=== PATIENT | female | born 1970 | race Caucasian/White ===

== ENCOUNTER → 2017-10-09 13:47 | Outpatient (CLI) | payer MEDICAID, SELFPAY ==
[2017-10-14 11:58] LABS: HPV Reflexed? NOT INDICATED
== END ==
PROVIDERS: Visit Provider Obstetrics & Gynecology
DX: Z12.4 Encounter for screening for malignant neoplasm of cervix (principal)
CPT/HCPCS: 88175; G0145

== ENCOUNTER → 2021-02-08 11:31 | Outpatient (CLI) | payer MEDICAID, SELFPAY ==
--- NOTE | 2021-02-08 11:39 | RAD_ITS ---
STUDY: X-RAY CHEST REASON FOR EXAM: Female, 51 years old. COUGH TECHNIQUE: Single frontal view of the chest. COMPARISON: None. FINDINGS: Nodular densities within the lateral upper right lung are nonspecific and may represent infection the appropriate clinical setting. There is no demonstrated pleural abnormality. Normal size heart. Normal mediastinum and clint. Normal visualized pulmonary arteries. Normal visualized aortic arch and descending thoracic aorta. Normal visualized thoracic spine. Normal visualized ribs, clavicles, and shoulders. There is no demonstrated abnormality of the visualized soft tissue structures of the upper abdomen. RAD/Chest PA and Lateral IMPRESSION: Nodular densities within the lateral upper right lung are nonspecific and may represent infection the appropriate clinical setting. Follow-up is recommended to document resolution. Electronically Signed: Devendra James MD at 21:27 EDT Tel , Service support ,
== END ==
PROVIDERS: PCP Family Medicine; Referring Provider Family Medicine; Visit Provider Family Medicine
DX: R05 Cough (principal)
CPT/HCPCS: 36415; 71046; 86769

== ENCOUNTER → 2021-03-27 11:05 | Outpatient (CLI) | payer MEDICAID, SELFPAY ==
--- NOTE | 2021-03-27 11:05 | RAD_ITS ---
STUDY: X-RAY CHEST REASON FOR EXAM: Female, 51 years old. Lung nodule. TECHNIQUE: PA and lateral views of the chest. COMPARISON: 02/08/2025. FINDINGS: The lungs are well-expanded and free of infiltrate or mass. There are no visualized nodules in the lateral right upper lobe. There is no demonstrated pleural abnormality. Normal size heart. Normal mediastinum and clint. Normal visualized pulmonary arteries. Normal visualized aortic arch and descending thoracic aorta. Normal visualized thoracic spine. Normal visualized ribs, clavicles, and shoulders. There is no demonstrated abnormality of the visualized soft tissue structures of the upper abdomen. RAD/Chest PA and Lateral IMPRESSION: No visualized pulmonary nodules. If there is continued concern CT is recommended. Electronically Signed: Ben Proctor DO at 17:19 EDT Tel [phone], Service support ,
[2021-03-27 12:33] LABS: Anion Gap 6 (5-15); BUN 14 mg/dL (7-18); BUN/Creat Ratio 21.1 RATIO (10-20); Calcium,Total 9.2 mg/dL (8.5-10.1); Chloride 103 mmol/L (98-107); Cholesterol 259 mg/dL (200); Creatinine, Serum 0.66 mg/dL (0.55-1.02); EST Glomerular Filtration Rate 100 mL/min (>60); Est Glom Filt Rate - Afr Amer 121 mL/min (>60); Glucose 103 mg/dL (74-106); High Density Lipoprotein 43 mg/dL; Potassium 3.6 mmol/L (3.5-5.1); Sodium Level 137 mmol/L (136-145); Triglycerides 404 mg/dL; Vitamin D,25 Hydroxy 37.5 ng/mL
== END ==
PROVIDERS: PCP Family Medicine; Referring Provider Family Medicine; Visit Provider Family Medicine
DX: R91.1 Solitary pulmonary nodule (principal); Z13.21 Encounter for screening for nutritional disorder; Z13.29 Encounter for screening for other suspected endocrine disorder; Z13.1 Encounter for screening for diabetes mellitus
CPT/HCPCS: 36415; 71046; 80048; 80061; 82306; 84443

== ENCOUNTER → 2021-12-12 | Outpatient (CLI) | payer MEDICAID, SELFPAY ==
[2021-12-13 17:23] LABS: HPV APTIMA, High Risk Negative (Negative); HPV Reflexed? YES, CHARGE PATIENT
== END | disposition home or self-care (01) ==
LOC: LABSPEC 09:59
PROVIDERS: PCP Family Medicine; Visit Provider Obstetrics & Gynecology
DX: Z12.4 Encounter for screening for malignant neoplasm of cervix (principal)
CPT/HCPCS: 87624; 88175; G0145

== ENCOUNTER → 2022-01-01 | Outpatient (CLI) | payer MEDICAID, SELFPAY ==
--- NOTE | 2022-01-01 13:57 | BI_ITS ---
MAMMOGRAPHY - BILATERAL SCREENING REASON FOR EXAM: Female, 51 years old. Routine annual screening examination. PERTINENT HISTORY: Non-contributory. TECHNIQUE: Digital bilateral breast maritza (3D mammographic acquisition) in the CC and MLO projections. 2-D mediolateral oblique (MLO) and craniocaudad (CC) views of both breasts were obtained. CAD: Full Field Digital Mammography with Computer Added Detection was performed. COMPARISON: Comparison is made with prior study dated 09/03/2016. FINDINGS: Breast Composition: The breasts are extremely dense, which lowers the sensitivity of mammography. There are no dominant masses or suspicious calcifications. No other significant abnormalities are identified. There has been no significant change since the prior study. BI/SCRN MAMM (CAD)W/MARITZA BILAT IMPRESSION: Stable bilateral screening mammogram. Yearly follow-up mammogram recommended. (A) ASSESSMENT CATEGORY: BIRADS Category 1: Negative. A letter regarding these results will be sent to the patient by the facility within 30 days. Approximately 10% of breast cancers are not detected by mammography. A normal mammogram should not delay biopsy of a clinically suspicious abnormality. [id number] Electronically Signed: Keo Alberto MD at 14:48 EDT ,
== END | disposition home or self-care (01) ==
LOC: OPBI 13:56
PROVIDERS: PCP Family Medicine; Referring Provider Obstetrics & Gynecology; Visit Provider Obstetrics & Gynecology
DX: Z12.31 Encounter for screening mammogram for malignant neoplasm of breast (principal)
CPT/HCPCS: 77063; 77067

== ENCOUNTER → 2022-01-10 | Outpatient (CLI) | payer MEDICAID, SELFPAY ==
[2022-01-10 10:41] LABS: Absolute Lymphocyte Count 0.87 X10^3/uL (0.83-4.51); Basophil# 0.02 X10^3/uL; Basophil% 0.5 % (0-1); Eosinophil# 0.03 X10^3/uL; Eosinophils% 0.7 % (0-5); Hematocrit 31.7 % (37-47); Hemoglobin 10.5 g/dL (12.0-15.0); Lymphocyte # 0.87 X10^3/ul (0.83-4.51); Lymphocyte % 20.1 % (19-41); Mean Corp Hgb Conc 33.1 g/dL (32-36); Mean Corpuscular Hgb 29.9 pg (27.0-32.0); Mean Corpuscular Volume 90.3 fL (81-99); Mean Platelet Vol. 9.7 fl (6.2-12.0); Monocyte# 0.41 X10^3/uL; Monocyte% 9.5 % (0-10); NRBC Flagged by Analyzer 0 % (0-5); Neutrophil # 2.99 X10^3/uL (2.7-7.7); Platelet Count 249 K/mm3 (150-450); RBC Distribution Width SD 42.7 fl (35.1-43.9); Red Blood Count 3.51 M/mm3 (4.2-5.4); White Blood Count 4.3 K/mm3 (4.4-11.0)
== END | disposition home or self-care (01) ==
LOC: PAVLAB 10:23
PROVIDERS: PCP Family Medicine; Referring Provider Obstetrics & Gynecology; Visit Provider Obstetrics & Gynecology
DX: N64.4 Mastodynia (principal)
CPT/HCPCS: 36415; 85025

== ENCOUNTER 2023-12-29 08:55 | Emergency (ER) | payer OTHER, SELFPAY ==
[2023-12-29 08:57] VITALS: BP 143/79; PULSE 77; RESP 18; TEMP 36.6; O2SAT 100
[2023-12-29 08:59] VITALS: BMI 26.3
--- NOTE | 2023-12-29 09:09 | VDLE_ITS ---
Reason For Study: Pain RLE RIGHT LEFT GSV is normal. CFV is compressible, spontaneous, phasic, FV is compressible, spontaneous, phasic, competent, and demonstrates normal competent and demonstrates normal augmentation. augmentation. POP V is compressible, spontaneous, phasic, competent and demonstrates normal augmentation. T/P Trunk is compressible. PTV is compressible. Loosely attached, mobile thrombus noted Rt CFV Rt PeroV is DILATED and NON COMPRESSIBLE consistent with acute DVT. Procedure This is a venous duplex using B-mode, color flow and spectral Doppler. Exam performed portable in ED. A preliminary report was called and/or faxed to Dr. Carver. VL/Venous Duplex US, Unilateral Interpretation Summary Acute deep vein thrombosis is noted in the right common femoral vein, peroneal vein. Ordering Physician: Holden Carver Referring Physician: Souleymane Limon Performed By: Jessica Lora, [place], RVT
--- NOTE | 2023-12-29 09:19 | ED.VIS.LOWEX ---
HPI History of Present Illness Chief Complaint: Lower Extremity Injury Narrative Narrative: 53-year-old female presents with right calf pain/ache that she has had for the last 3 days. She relates history that she had surgery approximately 2 weeks ago. She had a tummy tuck performed, and her plastic surgeon told her that her blood clots easily. She has been sleeping in a recliner, and approximately 3 days ago noticed a ache in her right calf. Since she had been told that her blood clots easily, she was doing research and became concerned about a DVT. She denies any chest pain or shortness of breath associated with this new calf pain. No problems with her abdominal incision. She presents to the emergency department today with concern for DVT. [facility] Medical History History of skin cancer Home Medications ?Medication ?Instructions ?Recorded ?Last Taken ?Type fluconazole 150 mg tablet 150 mg PO ONCE #1 TAB 01/31/23 Unknown Rx (Diflucan) Allergy/AdvReac Type Severity Reaction Status Date / Time No Known Allergies Allergy Verified 12/29/23 08:59 Surgical History H/O tubal ligation History of tonsillectomy and adenoidectomy Social History Smoking Status: Never smoker alcohol intake: current details: social substance use type: does not use caffeine: Yes seatbelt use: always do you feel safe at home: Yes ROS ROS ED ROS Narrative Constitutional: No fever, no chills. HEENT: No sore throat. No neck pain. No loss of vision. No rhinorrhea. Cardiovascular: No chest pain. No palpitations. No pedal edema. Respiratory: No cough, no shortness of breath. Abdominal: No abdominal pain. No nausea. No vomiting. Genitourinary: No dysuria. No hematuria. Musculoskeletal: Positive right posterior calf pain, mid calf. Feels more like an ache. No arthralgias. Neurologic: No headaches. No dizziness. No lightheadedness. Skin: No rash. No change in color. Psychiatric: No depression. No anxiety. EXAM Physical Exam Narrative Exam Narrative: Afebrile. Vital signs noted. Regular rate and rhythm. Lungs clear to auscultation bilaterally. Abdomen soft and nontender with positive bowel sounds. Inspection of the right lower extremity reveals no evidence of erythema. She has mild tenderness to palpation in the mid calf area, with palpable dorsalis pedis pulse. Flexion extension right knee intact, able to transfer from chair to cot without difficulty. Const Vital Signs: 12/29/23 08:57 Temperature 97.9 F Temperature Source Temporal Pulse Rate 77 Respiratory Rate 18 Blood Pressure 143/79 H Blood Pressure Mean 100 Pulse Ox 100 Oxygen Delivery Method Room Air MDM MDM MDM Narrative Medical decision making narrative: In the differential diagnosis would be below the calf DVT versus muscle strain/ache. I have low suspicion for DVT based on her clinical examination. She did state that they measured with a soft sided tape measure last evening and her right calf may have been a quarter of an inch or so larger. DVT ultrasound will be obtained to rule out thrombosis. In discussion with the composite bond technician, patient does have a below the knee DVT. Additionally, she did comment on a loosely attached clot in the right common femoral vein towards the groin. Once again, patient denies any chest pain or shortness of breath. She is not tachycardic. I discussed patient with the vascular surgeon, Dr. Claudio Espinoza, who recommends anticoagulation. She was given her first dose of Eliquis here and prescription written for a starter pack. She can follow-up with vascular surgery. She was told that she should also reach out to her plastic surgeon to let them know that she is being started on anticoagulation, but she is already 2 weeks out from her surgery and has not had any complications as of yet. I feel she can be discharged to follow-up with vascular surgery. Additionally, she was told she may need follow-up with hematology/oncology. Return instructions to the emergency department were reviewed. Disposition is discharged home in stable condition. Discharge Plan Triage Chief Complaint: Lower Extremity Injury ED Provider: Holden Carver Dx/Rx/DC Orders Prescriptions: No Action fluconazole [Diflucan] 150 mg tablet 150 mg PO ONCE Qty: 1 0RF Rx Instructions: as a single dose Primary Care Provider: Souleymane Limon Referrals: Souleymane iLmon MD [Primary Care Provider] - Print Language: Kinyarwanda
[2023-12-29] MEDS: APIXABAN 5 MG TABLET 10 MG PO (11:59)
[2023-12-29 12:01] VITALS: BP 146/79; PULSE 68; RESP 14; TEMP 36.6; O2SAT 100
== END 2023-12-29 12:04 | disposition home or self-care (01) ==
PROVIDERS: Emergency Provider Emergency Medicine; PCP Family Medicine; Visit Provider Emergency Medicine
DX: I82.411 Acute embolism and thrombosis of right femoral vein (principal); I82.451 Acute embolism and thrombosis of right peroneal vein; Z98.890 Other specified postprocedural states
CPT/HCPCS: 93971; 99282

== ENCOUNTER 2024-01-03 07:11 | Emergency (ER) | payer OTHER, SELFPAY ==
[2024-01-03 07:12] VITALS: BP 149/72; PULSE 76; RESP 18; TEMP 37; O2SAT 100
[2024-01-03] MEDS: Lidocaine 5% Patch 1 PATCH TOPICAL (07:42)
[2024-01-03] MEDS: oxyCODONE 5 MG Tablet PO (07:42)
[2024-01-03] MEDS: cycloBENZAPRine HCl 10 MG Tablet PO (07:42)
--- NOTE | 2024-01-03 08:21 | EDS_ITS ---
HPI History of Present Illness Chief Complaint: Back Detail of Chief Complaint: sciatica Informant: patient Onset/Context/Timing Onset: Days Context: Gradual Onset Narrative Narrative: Patient presents a three day history of right lower back pain. She does have a history of sciatica. Imb-csm-p-half weeks ago she underwent a tummy tuck and was off work for two weeks. After returning to work two days ago, she has had increased right lower back pain down her right leg. Patient was seen a few days ago and diagnosed with the right lower extremity DVT and is currently on Eliquis. [facility] Medical History Sciatica History of skin cancer Home Medications ?Medication ?Instructions ?Recorded ?Last Taken ?Type fluconazole 150 mg tablet 150 mg PO ONCE #1 TAB 01/31/23 Unknown Rx (Diflucan) apixaban 5 mg (74 tabs) tablets in See Rx Instructions PO .COMPLEX 12/29/23 Unknown Rx a dose pack (Eliquis DVT-PE Treat #74 tabs 30D Start) cyclobenzaprine 10 mg tablet 10 mg PO TID PRN Muscle Spasm #20 01/03/24 Unknown Rx TABLETS lidocaine 5 % topical patch 1 patch topical DAILY #15 ea 01/03/24 Unknown Rx (Lidoderm) oxycodone-acetaminophen 5 mg-325 1 tab PO Q6H PRN pain 3 days #12 01/03/24 Unknown Rx mg tablet (Percocet) tabs Allergy/AdvReac Type Severity Reaction Status Date / Time No Known Allergies Allergy Verified 01/03/24 07:14 Surgical History (Updated 01/03/24 @ 08:[address] Zaira Wolfe MD) S/P abdominoplasty H/O tubal ligation History of tonsillectomy and adenoidectomy Social History Smoking Status: Never smoker alcohol intake: current details: social substance use type: does not use caffeine: Yes seatbelt use: always do you feel safe at home: Yes ROS ROS ED Constitutional Constitutional ED: Denies chills or fever(s) Eyes Eyes: Denies discharge from eye(s) ENT ENT ED: Denies discharge from eye(s), rhinorrhea or sore throat Cardiovascular Cardiovascular: Denies chest pain Respiratory/Chest Respiratory/Chest: Denies cough or dyspnea Gastrointestinal Gastrointestinal: Reports abdominal pain; Denies nausea or vomiting Genitourinary Genitourinary ED: Denies dysuria Musculoskeletal Musculoskeletal: Reports back pain and extremity pain Integumentary Denies Abrasions or rash Neurologic Neurologic: Denies headache(s) or weakness Psychiatric Psychiatric: Denies anxiety or depression Allergic/Immunologic Allergic/Immunologic ED: Denies lip swelling or urticaria EXAM Physical Exam Const Vital Signs: 01/03/24 07:12 01/03/24 08:29 Temperature 98.6 F 98.1 F Temperature Source Temporal Pulse Rate 76 78 Respiratory Rate 18 18 Blood Pressure 149/72 H 140/70 H Blood Pressure Mean 97 93 Pulse Ox 100 98 Oxygen Delivery Method Room Air Positive well nourished and well developed General Appearance ED: well developed HEENT Reports moist mucous membranes Eyes EOMs intact bilaterally Resp normal respiratory effort Cardio regular rate and regular rhythm GI soft to palpation GI Narrative: Incision site clean and dry. No evidence of infection. Back/Spine normal to inspection Back/Spine Narrative: Tenderness to palpation right lower lumbar paraspinals. No erythema or point tenderness. Extremity normal to inspection Neuro oriented x3 and no sensory deficits noted Motor Exam: strength 5/5 throughout Psych mental status grossly normal MDM MDM MDM Narrative Medical decision making narrative: Patient given oxycodone, Flexeril, and Lidoderm patch topically. Because patient was recently started on Eliquis, we will avoid anti-inflammatories as well as steroids. Treatment and Re-Evaluation Narrative: On repeat evaluation patient does have mild improvement in her symptoms. She?s able to stand from the wheelchair without significant difficulty. She still has problems standing up straight because of her recent surgery, which she thinks has triggered her back pain. Prescription for Percocet, Lidoderm patches, and Flexeril was sent to the pharmacy. Unfortunately, there is a computer issue and I am unable to verify whether the prescriptions were appropriately transmitted. Patient has been given paper copies of her prescriptions as well. Patient will continue supportive care. Return instructions given. Discharge Plan Triage Chief Complaint: Back ED Provider: Zaira Wolfe Dx/Rx/DC Orders Clinical Impression: Sciatica Instructions: ED Sciatica Prescriptions: New oxycodone-acetaminophen [Percocet] 5-325 mg tablet 1 tab PO Q6H PRN (Reason: pain) 3 Days Qty: 12 0RF cyclobenzaprine 10 mg tablet 10 mg PO TID PRN (Reason: Muscle Spasm) Qty: 20 0RF lidocaine [Lidoderm] 5 % adhesive patch,medicated 1 patch topical DAILY Qty: 15 0RF Rx Instructions: leave on most painful area for up to 12 hrs No Action Eliquis DVT-PE Treat 30D Start 5 mg (74 tabs) tablets,dose pack See Rx Instructions .ROUTE .COMPLEX Qty: 74 0RF Rx Instructions: orally per package directions fluconazole [Diflucan] 150 mg tablet 150 mg PO ONCE Qty: 1 0RF Rx Instructions: as a single dose Primary Care Provider: Souleymane Limon Referrals: Souleymane Limon MD [Primary Care Provider] - 5-7 Days Print Language: Spanish Disposition Disposition: Home, Self Care Discharge Date/Time: 01/03/24 08:31
[2024-01-03 08:29] VITALS: BP 140/70; PULSE 78; RESP 18; TEMP 36.7; O2SAT 98
== END 2024-01-03 08:31 | disposition home or self-care (01) ==
PROVIDERS: Emergency Provider Emergency Medicine; PCP Family Medicine; Visit Provider Emergency Medicine
DX: M54.31 Sciatica, right side (principal); I82.401 Acute embolism and thrombosis of unspecified deep veins of right lower extremity; Z79.01 Long term (current) use of anticoagulants; Z79.899 Other long term (current) drug therapy; Z98.890 Other specified postprocedural states
CPT/HCPCS: 99282